=== PATIENT | male | born 1965 | race Caucasian/White ===

== ENCOUNTER 2023-09-04 09:54 | Outpatient (CLI) | payer MEDICARE, SELFPAY ==
[2023-09-04 10:31] LABS: Abs Immature Grans 0.01 10^3/uL (0.0-0.06); Absolute Basophil Count 0.05 10^3/uL (0.0-0.2); Absolute Eosinophil Count 0.14 10^3/uL (0.0-0.7); Absolute Lymphocyte Count 1.11 10^3/uL (1.2-3.4); Absolute Monocyte Count 0.58 10^3/uL (0.1-0.8); Absolute Neutrophil Count 2.91 10^3/uL (1.2-6.7); Eosinophils % 2.9; HCT 43.4 % (40.0-50.0); HGB 14.2 g/dL (13.5-17.5); Immature Grans % 0.2; Lymphocytes % 23.1; MCH 30.5 pg (27.0-33.0); MCHC 32.7 % (32.0-36.0); MCV 93 fL (80-95); MPV 8.3 fL (8.0-11.0); Monocytes % 12.1; Neutrophils % 60.7; Platelet Count 188 10^3/uL (130-400); RBC 4.65 10^6/uL (4.36-5.78); RDW 12.4 % (11.8-14.1); RDW-SD 42.8 fL
[2023-09-04 10:38] LABS: ESR 1 mm/hr (0-20)
[2023-09-04 10:54] LABS: Creatine Kinase 196 U/L (39-308); TSH 1.43 uIU/Ml (0.36-3.74)
[2023-09-04 10:55] LABS: C-Reactive Protein < 0.50 mg/dL (<or=0.5)
[2023-09-04 17:57] LABS: Rheumatoid Factor <8.6 IU/mL (<12.0)
[2023-09-07 10:07] LABS: Cyclic Citrullinated Peptide <2.5 U/mL (<5.0)
[2023-09-07 12:20] LABS: JO 1 Ab, IgG <0.2 U
== END 2023-09-04 09:55 | disposition home or self-care (01) ==
PROVIDERS: Visit Provider Student in an Organized Health Care Education/Training Program
DX: M62.81 Muscle weakness (generalized) (principal)
CPT/HCPCS: 36415; 82550; 85652; 86200; 73564; 84443; 85025; 86140; 86235; 86431

== ENCOUNTER → 2023-09-04 10:08 | Outpatient (CLI) | payer MEDICARE, SELFPAY ==
--- NOTE | 2023-09-04 09:50 | DI.RAD_ITS ---
Exam(s) XR KNEE RT 4V AP,LAT,MADDISON,PAT EXAM: XR KNEE RT 4V AP,LAT,MADDISON,PAT CLINICAL HISTORY: Pain in rt knee, M25.561. TECHNIQUE: 2D digital imaging was performed. Three views. COMPARISON: No exams were available for comparison FINDINGS: BONES: No acute fracture is present. No bony destructive lesion is seen. JOINTS: The knee is normally aligned. No joint effusion is seen. The joint spaces are maintained. SOFT TISSUE: Anterior soft tissue swelling. IMPRESSION: Anterior soft tissue swelling. DATA REPOSITORY: RADIATION DOSE DELIVERED:
== END ==
PROVIDERS: Visit Provider Student in an Organized Health Care Education/Training Program
DX: M25.561 Pain in right knee (principal)
CPT/HCPCS: 73564

== ENCOUNTER → 2024-03-24 10:25 | Outpatient (BNVA) | payer MEDICARE, SELFPAY | PROVIDERS: Visit Provider Physical Therapy Assistant | DX: Z12.11 Encounter for screening for malignant neoplasm of colon (principal); Z80.0 Family history of malignant neoplasm of digestive organs; Z86.0101 Personal history of adenomatous and serrated colon polyps ==

== ENCOUNTER 2024-04-04 09:46 | Day surgery (SDC) | payer MEDICARE, MEDICAID, SELFPAY ==
--- NOTE | 2024-04-03 12:35 | PDOC.DSDIS_ITS ---
Date of service: 04/04/24 Time of Service: 12:38 Discharge Plan Disposition Patient Disposition: Home Condition: Good Discharge Details Reason For Visit: screening colonsocopy Attending Provider: Kamlesh Childers Home Meds and New Rx's Prescriptions: Continued magnesium oxide 250 mg magnesium tablet 250 mg PO DAILY multivitamin Tablet 1 tab PO DAILY Discontinued bisacodyl [Dulcolax (bisacodyl)] 5 mg tablet,delayed release (DR/EC) 5 mg PO ONCE Qty: 4 0RF Rx Instructions: Take per colonoscopy instructions provided by ordering providers office polyethylene glycol 3350 17 gram/dose powder 17 g PO ONCE Qty: 238 0RF Rx Instructions: Take per colonoscopy instructions provided by ordering providers office Discharge Instructions Instructions: Colitis Additional Instructions: Andrew, was pleasure meeting you today, and I hope you are comfortable during the procedure. The colonoscopy went very smoothly. I did not see any signs of polyps. You do have an area of inflammation in the beginning part of your colon known as the cecum, right where it connects to the ascending colon. This was seen on your previous colonoscopy. I would guess it is the same area as before. I did do some biopsies of this area, and we can compare those to your last colonoscopy results. Clinically, it does have some features that seem consisten t with Crohn's disease. For right now, I would not do anything different, but we can make adjustments based on the biopsy results if needed. Those results usually take about a week or so to get back, but when I have them I will be in touch. If you need anything in the meantime, please do not hesitate to ask. 1. If tolerated, consume a soft, low fiber diet for 1-2 days. [address] Do not drive, drink alcohol, operate machinery, make critical decisions, or do activities that require coordination or balance for 24 hours. 3. Because air was put into your colon during the procedure, expelling air from your rectum (passing gas or farting) is normal. 4. You may not have a bowel movement for 1-3 days because of the colonoscopy prep. This is normal. 5. Go directly to the emergency room if you notice any of the following: Develop chills (warm to touch), or if you have a thermometer and your temperature is above 101 Difficulty breathing or difficultly swallowing Persistent vomiting Severe abdominal pain, other than gas cramps Severe chest pain Black, tarry stools Any bleeding ? exceeding one tablespoon 6. Call your physician if the site where your intravenous was started becomes red, swollen, painful, and warm to touch. 7. Your physician has reviewed your pre-procedure medications. Please continue to take those medications as previously ordered. You will be given specific information/education regarding any changes to your medications before leaving. Stand Alone Forms: Anesthesia Discharge InstElizabet Coley (DSU) Activity:: Activity as Tolerated Diet:: As Tolerated Discharge Orders Discharge Orders: Discharge Order (Routine); Ordered 04/03/24 Ordered By: Kamlesh Childers DS: Diagnosis Discharge Diagnosis (1) Colitis: Status: Acute Asessment and Plan: Follow-up on biopsy results
--- NOTE | 2024-04-03 12:36 | W.COLOREPORT ---
Date of service: 04/04/24 Time of Service: 12:44 Colonoscopy Report Date of procedure: 04/04/24 Pre-op diagnosis general: screening colonoscopy Post-op diagnosis procedure note: other (Colitis) Procedure: colonoscopy with biopsies Surgeon: Kamlesh Childers Anesthesia Type: General:No Airway Estimated blood loss (mL): 10 Pathology: other (Cold forceps biopsies of cecal and ascending colon colitis) Complications: None Disposition: same day Indications: Mika is a 59 eyar old man with a family history of colon cancer who needs his next screening colonoscopy Prep: Miralax/Dulcolax Procedure Start Time: 12:06 Procedure End Time: 12:27 Retraction Time: 9 Findings: Cecal and ascending colon colitis Procedure Description: After the induction of anesthesia, and with the patient in left lateral decubitus position, I began by performing an external anorectal exam.? Perineum and skin were normal, as was the anal verge.? There was no evidence of external hemorrhoids.? Next, I performed a digital rectal exam.? I did not appreciate any abnormal findings.? Next, I advanced a colonoscope into the rectal vault.? I performed retroflexion.? This appeared normal.? Using insufflation, I then advanced the colonoscope beyond the rectal folds and into the sigmoid colon before advancing towards the cecum.? The quality of the prep was excellent.? In the proximal portion of the ascending colon, right at the cecum, or 2 small patches of inflammation. Narrowband imaging was used to assist with analysis. Clinical features seem most consistent with Crohn's disease. It sounds like the same exact area was present during his previous colonoscopy. The tissue was friable, but unable to advance beyond without any difficulty. The scope was noted to be in the cecum by identification of the ileocecal valve and appendiceal orifice.? I was able to cannulate the terminal ileum for several centimeters. This all appears totally normal without any signs of inflammation or ulceration. I brought the camera back into the cecum, and up to the area of inflammation. Cold forceps biopsies were used to sample several areas. There is minimal bleeding from the biopsy sites. I then began withdrawing the colonoscope using repeated irrigation as necessary for full evaluation of the colonic mucosa. ?Once the scope was withdrawn to the level of the rectum, great care was taken to examine portions of the rectal folds.? I did not see any signs of tumors or polyps. Finally, the scope was withdrawn and the patient was brought to the same-day surgery recovery unit as the anesthetic wore off. ?The findings and instructions were shared with the patient prior to discharge. [place] Bowel Prep [place] Bowel Prep Right Colon: 3 Left Colon: 3 Transverse Colon: 3 Total Score: 9
[2024-04-04 10:20] VITALS: BP 120/88; PULSE 70; RESP 16; TEMP 36.5; O2SAT 96
--- NOTE | 2024-04-04 10:59 | W.ANESPRE ---
General Info Date of Service Date Performed: 04/04/24 Height: 6 ft Weight: 79.2 kg Body Mass Index (BMI): 23.6 Surgical Procedure: Operation Date: 04/04/24 11:20 Proposed Procedure Side Surgeon yeny Childers MD Meds Allergies and Home Medications Allergies Allergy/AdvReac Type Severity Reaction Status Date / Time gluten Allergy Unknown Verified 04/04/24 10:40 soy Allergy Unknown Verified 04/04/24 10:40 Home Medication ?Medication ?Instructions ?Recorded magnesium oxide 250 mg PO DAILY 02/15/24 multivitamin 1 tab PO DAILY 02/15/24 Current Visit Medications: Current Medications Generic Name Dose Route Start Last Admin Trade Name Freq PRN Reason Stop Dose Admin Hyoscyamine Sulfate 0.125 mg 04/04/24 06:00 Hyoscyamine 0.125 Mg Sl/Oral/Chew SL 05/04/24 05:59 DIRECTED PRN Ringer's Solution 1,000 mls @ 80 mls/hr 04/04/24 06:00 IV 05/01/24 23:59 INFUSION [facility] IV Miscellaneous Supplies 1 each 04/04/24 06:00 Iv Access IV 05/01/24 23:59 DIRECTED ALLAN Ondansetron HCl 4 mg 04/04/24 06:00 Ondansetron 4 Mg/2 Ml Vial IVP 05/04/24 05:59 Q4H PRN PRN Nausea / Vomiting Sodium Chloride 0 ml 04/04/24 06:00 Normal Saline Flush 10 Ml Syr IV 05/01/24 23:59 PRN PRN Sodium Chloride 0 ml 04/04/24 06:00 Normal Saline 10 Ml Vial IJ 05/01/24 23:59 DIRECTED PRN Sterile Water 0 ml 04/04/24 06:00 Water,Injection,Sterile 10 Ml Vial IJ 05/01/24 23:59 DIRECTED PRN PFSH Medical History Medical History Disorder of intestine Status post repair of fracture of orbit (~2001) H/O pneumothorax (~2001) Hypertrophic condition of skin Pain, joint, knee, right Amnesia Low back pain Shoulder pain Joint pain Bipolar disorder Disorder of adrenal gland Surgical History Surgical History History of Johnie fundoplication (~1997) Tobacco Smoking/Tobacco Use Status: Never Alcohol Alcohol Intake: never Substance Use Substance use type: does not use Vital Signs and Lab Results Vital Signs Most Recent Vital Signs in EMR: Most Recent Vital Signs Temp Pulse Resp BP Pulse Ox 36.5 C 70 16 120/88 96 04/04/24 10:20 04/04/24 10:20 04/04/24 10:20 04/04/24 10:20 04/04/24 10:20 Lab Results Blood Type / Crossmatch: No Data to Display Complete Blood Count: No Data to Display Complete Metabolic Panel: No Data to Display Liver Function Panel: No Data to Display Coagulation Panel: No Data to Display Cardiac Panel: No Data to Display Arterial Blood Gas: No Data to Display Venous Blood Gas: No Data to Display Pancreas Panel: No Data to Display Thyroid Panel: No Data to Display Infectious Disease: No Data to Display Blood Cultures: No Data to Display Toxicology Panel: No Data to Display Anesthesia Assessment and Plan Anesthesia History Personal History: No History of Anesthesia Complications Family History: No Family History of Anesthesia Complications Exercise Tolerance Exercise Tolerance: Metabolic Equivalents>4 Pertinent Negatives Pertinent Negatives: No Symptoms of GERD, No Major Cardiovascular Symptoms or Complaints, No Major Pulmonary Symptoms or Complaints and No History of CVA/TIA Cardiac & Pulmonary Exam Cardiac Exam: Normal S1/S2 Heart Sounds Pulmonary Exam: Clear Bilateral Breath Sounds Implantable Cardiac Device Does patient have a Pacemaker or an ICD?: No Airway Exam Known Difficult Airway: No Mallampati Class: 2 Mouth Opening: Normal (> 3cm) Thyromental Distance: Greater than 3 cm Neck Range of Motion: Full ROM Neck Circumference: Normal Teeth Condition: Normal Dentition ASA Classification ASA Score: ASA 2 Emergency Case?: No NPO Status NPO Status: NPO Clears >2 hours, Solids >8 hours Anesthesia Plan Resuscitation Status: Full Code Anesthesia Technique: General Anesthesia Airway Planned: Natural Airway Monitors Used: Standard Monitors Preoperative Comments:: Patient stopped drinking water at 1000, we will delay his case until 1200
[2024-04-04 11:15] VITALS: BMI 23.6
[2024-04-04] MEDS: Lactated Ringers 1,000 ML 80 ML IV (11:55)
--- NOTE | 2024-04-04 12:24 | BOWEL_PTH ---
PATIENT: Mika Tinoco LOC: [facility] U#:[id number] AGE/SX: 59/M ROOM: RE04/04/[address]: Kamlesh Childers MD : [id number] BED: DIS: 04/04/2024 SPEC #: [id number] RECD: 04/05/24 13:24 STATUS: MORE REQ #: [id number] SEIPDEH: 04/04/24 12:[address]: Kamlesh Childers DEPT: Surgical Specimen RECD BY: Terrie Hogan Tissues: 1 - BIOPSY BOWEL Procedures: GROSS AND MICRO LEVEL 4 Comments: [id number]
[2024-04-04 12:32] VITALS: BP 106/74; PULSE 70; RESP 16; TEMP 36.2; O2SAT 97
--- NOTE | 2024-04-04 12:44 | W.ANESPOSTOP ---
Postoperative Evaluation Date, Time and Location Date Performed: 04/04/24 Time Performed: 12:44 Patient Location: Day Surgery Unit Vital Signs Most Recent Imported Vital Signs: Most Recent Vital Signs Temp Pulse Resp BP Pulse Ox 36.2 C L 70 16 106/74 97 04/04/24 12:32 04/04/24 12:32 04/04/24 12:32 04/04/24 12:32 04/04/24 12:32 Pain Score Most Recent Pain Score: Most Recent Pain Score Pain Level 0 04/04/24 12:32 Assessment Mental Status: Awake (Alert & Oriented to Patient Baseline) Airway and Respiratory Function: Patent airway with normal (patient baseline) respiratory exam Cardiovascular Function: Hemodynamically Stable Hydration Status: Adequately Hydrated Nausea & Vomiting: No Nausea or Vomiting Pain: Pt. Denies Any Pain Peripheral Nerve Block: Patient did not receive a nerve block
[2024-04-04 12:55] VITALS: BP 110/77; PULSE 59; RESP 16; TEMP 36.8; O2SAT 96
== END 2024-04-04 13:35 | disposition home or self-care (01) ==
PROVIDERS: Visit Provider Surgery
PROC: 0DJD8ZZ Inspection of Lower Intestinal Tract, Via Natural or Artificial Opening Endoscopic (ICD-10-PCS; CPT 45378; principal; 2024-04-04 11:15)
DX: Z12.11 Encounter for screening for malignant neoplasm of colon (principal); K52.89 Other specified noninfective gastroenteritis and colitis; Z80.0 Family history of malignant neoplasm of digestive organs; K63.5 Polyp of colon
CPT/HCPCS: 45380; 88305; J2704